=== PATIENT | male | born 1945 | race Caucasian/White ===

== ENCOUNTER 2016-09-03 12:29 | Day surgery (SDC) | payer MEDICARE, OTHER ==
[~2016-09-03] VITALS: Ht 172.8 cm; Wt 93.8 kg
[2016-09-03] VITALS (218 sets, daily range): BP systolic 122–186; BP diastolic 49–113; PULSE 40–60; TEMP 97–97.7; O2SAT 87–100
[~2016-09-03 12:29] MED LIST: ADVIL200 MG PO; ASPIRIN E.C. 8181 MG PO; DESYREL 100MG100 MG PO; DIABETA 2.5MG2.5 MG PO; FLOMAX 0.40.4 MG/CAP PO; GLUCOPHAGE500 MG/TAB PO; HCTZ 25MG TAB25 MG PO; IMDUR 30MG30 MG/TAB PO; LIPITOR 40MG TA40 MG PO; LOPID 600M600 MG/TAB PO; LOPRESSOR 225 MG/TAB PO; NITROSTAT0.4 MG/TAB SL; NORCO 325 MG-51 TAB PO; NORVASC 10MG10 MG PO; PLAVIX 75MG TAB75 MG PO; PRINIVIL40 MG PO; RANEXA 500MG T500 MG PO; RANEXA1000 MG PO; SINEMET 25/101 UDTAB PO; TOPAMAX200 MG PO; VITAMIN D31000 I1 PO; WELLBUTRIN XL300 M1 PO; ZOLOFT 50MG50 MG PO
[2016-09-03 13:20] LABS: HEMATOCRIT 44.7 % (42.0-52.0); HEMOGLOBIN 15.3 g/dl (13.5-18.0); MEAN CELL VOLUME 87 fl (80.0-100.0); MEAN CORPUSCULAR HEMOGLOBIN 30 pg (27.0-31.0); MEAN CORPUSCULAR HGB CONC 34 g/dl (33.0-37.0); MEAN PLATELET VOLUME 10.3 fl (7.4-10.4); PLATELET COUNT 193 K/mm3 (130-400); RED BLOOD COUNT 5.17 M/mm3 (4.20-5.60); REDCELL DISTRIBUTION WIDTH-CV 12.7 % (11.5-14.5); WHITE BLOOD COUNT 8.7 K/mm3 (4.8-10.8)
[2016-09-03 13:24] LABS: INR 1.1 (0.8-3.0); PROTHROMBIN TIME 12.1 SECONDS (9.7-12.8)
[2016-09-03 13:37] LABS: CALCIUM 9.3 mg/dL (8.4-10.2); CREATININE, serum 0.98 mg/dL (0.66-1.25)
[2016-09-03] MEDS ORDERED: TYLENOL 325MG325 MG PO (13:46)
[2016-09-04] VITALS (447 sets, daily range): BP systolic 116–160; BP diastolic 40–72; PULSE 44–48; TEMP 97.8–98.4; O2SAT 89–100
[2016-09-04 06:22] LABS: BASO % 0.3 % (0.0-2.0); EOS # 0.2 (0.0-0.7); EOS % 1.9 % (0-4.0); GRAN # 6.1 (1.4-6.5); GRAN % 63.1 % (42.2-75.2); HEMATOCRIT 42.7 % (42.0-52.0); HEMOGLOBIN 14.3 g/dl (13.5-18.0); LYMPH # 2.4 (1.2-3.4); LYMPH % 25.2 % (20.0-51.0); MEAN CELL VOLUME 88 fl (80.0-100.0); MEAN CORPUSCULAR HEMOGLOBIN 29 pg (27.0-31.0); MEAN CORPUSCULAR HGB CONC 34 g/dl (33.0-37.0); MEAN PLATELET VOLUME 10.7 fl (7.4-10.4); MONO # 0.9 (0.1-0.6); PLATELET COUNT 165 K/mm3 (130-400); RED BLOOD COUNT 4.86 M/mm3 (4.20-5.60); REDCELL DISTRIBUTION WIDTH-CV 12.8 % (11.5-14.5); WHITE BLOOD COUNT 9.7 K/mm3 (4.8-10.8)
[2016-09-04 06:33] LABS: CALCIUM 9.1 mg/dL (8.4-10.2); CREATININE, serum 1.07 mg/dL (0.66-1.25); POTASSIUM 3.7 mmol/L (3.4-5.0)
[2016-09-04] MEDS ORDERED: LIPITOR 80MG80 MG PO (13:41)
== END 2016-09-04 14:40 | disposition home or self-care (01) ==
LOC: COL.CAR 12:29 → ICU 15:57 → COL.CAR 09-04 14:40
PROVIDERS: Internal Medicine Interventional Cardiology
DX: I25.118 Atherosclerotic heart disease of native coronary artery with other forms of angina pectoris (principal); R00.1 Bradycardia, unspecified; I73.9 Peripheral vascular disease, unspecified; I10 Essential (primary) hypertension; E78.00 Pure hypercholesterolemia, unspecified; E78.5 Hyperlipidemia, unspecified; G47.30 Sleep apnea, unspecified; Z95.1 Presence of aortocoronary bypass graft; Z95.5 Presence of coronary angioplasty implant and graft; Z95.820 Peripheral vascular angioplasty status with implants and grafts; F17.210 Nicotine dependence, cigarettes, uncomplicated; Z79.01 Long term (current) use of anticoagulants; E11.9 Type 2 diabetes mellitus without complications
CPT/HCPCS: OP; C1725; C1769; C1874; C1887; C9600; J0583; J2250; J3010; Q9967